=== PATIENT | male | born 1965 | race African-American/Black ===

== ENCOUNTER 2016-07-15 19:30 | Inpatient (IN) | payer MEDICARE, MEDICAID ==
[~2016-07-15] VITALS: Ht 193 cm; Wt 174.3 kg
[2016-07-15 20:19] LABS: BASOPHILS # (AUTO) 0.2 /CMM (0.0-0.2); BASOPHILS % (AUTO) 1.3 % (0.0-2.0); DIFF TOTAL % 100 %; EOSINOPHILS # (AUTO) 0.2 /CMM (0.0-0.7); EOSINOPHILS % (AUTO) 1.1 % (0.0-6.0); HEMATOCRIT 33 % (39-51); HEMOGLOBIN 10.4 g/dL (13.5-17.5); LYMPHOCYTES # (AUTO) 1.7 /CMM (0.8-4.8); LYMPHOCYTES % (AUTO) 11.4 % (20.0-44.0); MEAN CORPUSCULAR HEMOGLOBIN 25 PG (26.0-33.0); MEAN CORPUSCULAR HGB CONC 32 g/dl (31.0-36.0); MEAN CORPUSCULAR VOLUME 80 fL (80-96); MONOCYTES # (AUTO) 1.5 /CMM (0.1-1.30); MONOCYTES % (AUTO) 9.9 % (2.0-12.0); NEUTROPHILS # (AUTO) 11.7 /CMM (1.8-8.9); NEUTROPHILS % (AUTO) 76.3 % (43.0-81.0); PLATELET COUNT (AUTO) 471 /CMM (150-450); WHITE BLOOD COUNT (AUTO) 15.3 K/uL (4.3-11.0)
[2016-07-15 20:30] LABS: ANION GAP 10 (5-14); CALCIUM, SERUM 8.5 mg/dL (8.5-10.1); CARBON DIOXIDE 31 mmol/L (21-32); CHLORIDE 101 mmol/L (98-107); CREATININE 1.3 mg/dL (0.6-1.3); GFR 70 mL/min (>60); GLUCOSE 157 mg/dL (74-106); POTASSIUM 4.5 mmol/L (3.5-5.1); SODIUM SERUM 137 mmol/L (136-145); UREA NITROGEN, BLOOD 20 mg/dL (7-18)
[2016-07-15 20:32] LABS: INR 1.28 (0.87-1.13); PROTHROMBIN TIME 13.4 SECS (9.5-12.7)
[2016-07-15 20:38] LABS: TROPONIN I < 0.017 ng/mL (0.00-0.056)
[2016-07-15] MEDS ORDERED: LEVOFLOXACIN 750 MG /D5W 150ML 150 ML IV ONE ×2 (21:30→21:31)
[2016-07-15] MEDS ORDERED: IV SET PRIMARY PUMP SET 1 EA INFUS.SET MC ONE (21:31)
[2016-07-15 22:00] VITALS: BP 103/69
[2016-07-15] MEDS ORDERED: IV NS 0.9% 1,000 ML BAG IV ONE (22:00)
[2016-07-15] MEDS ORDERED: IV NS 0.9% 1,000 ML ONE (22:01)
[2016-07-15] MEDS ORDERED: IV SET PRIMARY 1 EA INFUS.SET MC ONE (22:01)
[2016-07-15 22:45] VITALS: BP 105/63
[2016-07-15 23:06] LABS: *LACTIC ACID REFLEX FLAG YES
[2016-07-15 23:38] LABS: BILIRUBIN,DIRECT 0.2 mg/dL (0.0-0.2); BILIRUBIN,TOTAL 0.3 mg/dL (0.2-1.0)
[2016-07-15] MEDS ORDERED: IV NS 0.9% 1,000 ML IV PRN (23:45)
[2016-07-16] MEDS ORDERED: ACETAMINOPHEN 325 MG TABLET PO PRN
[2016-07-16] MEDS ORDERED: ZOLPIDEM TARTRATE 5 MG TABLET PO PRN
[2016-07-16] MEDS ORDERED: MAG HYDROX/AL HYDROX/SIMETH 30 ML UDC PO PRN
[2016-07-16] MEDS ORDERED: Z GUARD REMEDY 2 OZ OINT TP PRN
[2016-07-16] MEDS ORDERED: ONDANSETRON HCL/PF 4 MG/2 ML VIAL IVP PRN
[2016-07-16] MEDS ORDERED: MAGNESIUM HYDROXIDE 30 ML UDC PO PRN
[2016-07-16] MEDS ORDERED: SECONDARY IV SET 1 EA INFUS.SET MC ONE (00:19)
[2016-07-16] MEDS ORDERED: IV SET PRIMARY PUMP SET 1 EA INFUS.SET MC ONE (00:19)
[2016-07-16] MEDS ORDERED: PIPERACILLIN /TAZOBACTAM 2.25 G VIAL IV ONE (00:25)
[2016-07-16] MEDS ORDERED: IV D5W 50 ML IV ONE (00:25)
[2016-07-16] MEDS ORDERED: GUAIFENESIN/D-METHORPHAN HB 5 ML UDC ONE (05:57)
[2016-07-16] MEDS: GUAIFENESIN/D-METHORPHAN HB 5 ML UDC PO PRN ×2 (06:01→22:55)
[2016-07-16 07:01] LABS: CALCIUM, SERUM 8.5 mg/dL (8.5-10.1); CREATININE 1.1 mg/dL (0.6-1.3); PHOSPHORUS 3.8 mg/dL (2.5-4.9); POTASSIUM 4.5 mmol/L (3.5-5.1)
[2016-07-16 07:02] LABS: DIFF TOTAL % 100 %; EOSINOPHILS # (AUTO) 0.1 /CMM (0.0-0.7); EOSINOPHILS % (AUTO) 0.7 % (0.0-6.0); HEMATOCRIT 31 % (39-51); HEMOGLOBIN 9.8 g/dL (13.5-17.5); LYMPHOCYTES # (AUTO) 1.7 /CMM (0.8-4.8); MEAN CORPUSCULAR HEMOGLOBIN 26 PG (26.0-33.0); MEAN CORPUSCULAR HGB CONC 32 g/dl (31.0-36.0); MEAN CORPUSCULAR VOLUME 80 fL (80-96); MONOCYTES # (AUTO) 1.5 /CMM (0.1-1.30); MONOCYTES % (AUTO) 9.4 % (2.0-12.0); NEUTROPHILS # (AUTO) 12.2 /CMM (1.8-8.9); NEUTROPHILS % (AUTO) 78.9 % (43.0-81.0); PLATELET COUNT (AUTO) 492 /CMM (150-450); RED BLOOD CELL COUNT(AUTO) 3.83 MIL/uL (4.5-6.0); WHITE BLOOD COUNT (AUTO) 15.4 K/uL (4.3-11.0)
[2016-07-16 07:21] LABS: THYROID STIMULATING HORMONE 1.36 uIU/mL (0.358-3.74)
[2016-07-16] MEDS ORDERED: PIPERACILLIN /TAZOBACTAM 3.375 G in IV D5W 50 ML IV SCH (07:30)
[2016-07-16 08:00] VITALS: BP_SYST 103; BP_DIAS 69; BP_DIAS 70
[2016-07-16] MEDS: PANTOPRAZOLE 40 MG TABLET.DR PO SCH (08:06)
[2016-07-16] MEDS ORDERED: PIPERACILLIN /TAZOBACTAM 4.5 G in IV D5W 50 ML IV SCH ×3 (08:30)
[2016-07-16] MEDS ORDERED: FUROSEMIDE 20 MG/2 ML VIAL IV SCH (11:00)
[2016-07-16] MEDS: PIPERACILLIN /TAZOBACTAM 4.5 G in IV D5W 50 ML IV SCH ×3 (12:31→23:57)
[2016-07-16] MEDS: CARVEDILOL 6.25 MG TABLET PO SCH ×2 (12:37→21:12)
[2016-07-16] MEDS ORDERED: HYDROGEL DRESSING 90 GM TUBE TP PRN (14:00)
[2016-07-16] MEDS: HYDROCODONE/APAP 5/325MG 1 EACH TABLET PO PRN ×2 (14:20→21:28)
[2016-07-16] MEDS ORDERED: MINERAL OIL/PETROLATUM,WHITE 120 GM JAR TP PRN (14:30)
[2016-07-16 16:00] VITALS: BP 110/81
[2016-07-16] MEDS: HYDROGEL DRESSING 90 GM TUBE TP SCH (17:15)
[2016-07-16 20:00] VITALS: BP 122/87
[2016-07-17] MEDS: PIPERACILLIN /TAZOBACTAM 4.5 G in IV D5W 50 ML IV SCH ×3 (06:11→18:02)
[2016-07-17 07:52] VITALS: BP 109/76
[2016-07-17] MEDS: PANTOPRAZOLE 40 MG TABLET.DR PO SCH (08:26)
[2016-07-17] MEDS: CARVEDILOL 6.25 MG TABLET PO SCH ×2 (08:27→21:13)
[2016-07-17] MEDS: HYDROGEL DRESSING 90 GM TUBE TP SCH (08:35)
[2016-07-17] MEDS ORDERED: LEVE250T2 PO (08:50)
[2016-07-17] MEDS ORDERED: RIVA10TA PO (08:50)
[2016-07-17] MEDS ORDERED: OXYC-34 PO (08:50)
[2016-07-17] MEDS ORDERED: ATOR10TA PO (08:50)
[2016-07-17] MEDS ORDERED: FURO40TA5 PO (08:50)
[2016-07-17] MEDS ORDERED: BLOO-668 IN (08:50)
[2016-07-17] MEDS ORDERED: AMIN30LI4 PO (08:50)
[2016-07-17] MEDS ORDERED: DILT240C2 PO (08:50)
[2016-07-17] MEDS ORDERED: ARIP5TAB4 PO (08:50)
[2016-07-17] MEDS ORDERED: ASPI81TA2 PO (08:50)
[2016-07-17] MEDS ORDERED: DOCU-270 PO (08:50)
[2016-07-17] MEDS ORDERED: TRAM50TA2 PO (08:50)
[2016-07-17] MEDS ORDERED: ASCO500T9 PO (08:50)
[2016-07-17] MEDS ORDERED: BISA10SU8 RC (08:50)
[2016-07-17] MEDS ORDERED: MAGN400O6 PO (08:50)
[2016-07-17] MEDS ORDERED: BENA40TA2 PO (08:50)
[2016-07-17] MEDS ORDERED: GABA-534 PO (08:50)
[2016-07-17] MEDS ORDERED: INSU100V11 SQ (08:50)
[2016-07-17] MEDS ORDERED: RANI150T8 PO (08:50)
[2016-07-17] MEDS ORDERED: VENL25TA4 PO (08:50)
[2016-07-17] MEDS ORDERED: ACET-868 PO (08:50)
[2016-07-17] MEDS ORDERED: CLON0.1T PO (08:50)
[2016-07-17] MEDS ORDERED: TIZA2CAP PO (08:50)
[2016-07-17] MEDS ORDERED: DIVA250T4 PO (08:50)
[2016-07-17] MEDS ORDERED: BISACODYL SUPP (10 MG) 10 MG/SUPP.RECT SUPP.RECT RC PRN (09:00)
[2016-07-17] MEDS ORDERED: ACETAMINOPHEN 325 MG TABLET PO PRN (09:00)
[2016-07-17] MEDS ORDERED: HYDROCODONE/APAP 10/325MG 1 EA TABLET PO PRN (09:00)
[2016-07-17] MEDS ORDERED: CLONIDINE HCL 0.1 MG TABLET PO PRN (09:00)
[2016-07-17] MEDS ORDERED: MAGNESIUM HYDROXIDE 30 ML UDC PO PRN (09:00)
[2016-07-17] MEDS ORDERED: DILTIAZEM HCL CD 240 MG PO SCH (09:00)
[2016-07-17] MEDS ORDERED: DEXTROSE 50%-WATER 50 ML DISP.SYRIN IV PRN (09:30)
[2016-07-17] MEDS: DOCUSATE SODIUM 100 MG CAPSULE PO SCH ×2 (09:43→16:50)
[2016-07-17] MEDS: ARIPIPRAZOLE 5 MG TABLET PO SCH (09:43)
[2016-07-17] MEDS: ASPIRIN 81 MG TAB.CHEW PO SCH (09:44)
[2016-07-17] MEDS: PROSOURCE / PROSTAT (PYXIS) 30 ML UDC PO SCH ×2 (10:51→16:50)
[2016-07-17] MEDS: VENLAFAXINE 37.5 MG TABLET PO SCH ×2 (10:51→17:24)
[2016-07-17] MEDS: LEVETIRACETAM (250 MG) 250 MG TABLET PO SCH ×2 (10:51→21:15)
[2016-07-17] MEDS: BENAZEPRIL HCL 20 MG TABLET PO SCH (10:52)
[2016-07-17] MEDS: ASCORBIC ACID 500 MG TABLET PO SCH (10:52)
[2016-07-17] MEDS: FUROSEMIDE 40 MG TABLET PO SCH (10:58)
[2016-07-17] MEDS: TIZANIDINE HCL 4 MG TABLET PO SCH ×2 (11:58→17:24)
[2016-07-17] MEDS: DIVALPROEX SODIUM 250 MG TABLET.DR PO SCH ×2 (12:25→21:14)
[2016-07-17] MEDS: GABAPENTIN 300 MG CAPSULE PO SCH ×2 (12:25→21:13)
[2016-07-17] MEDS: INSULIN REGULAR, HUMAN 100 UNIT/ML 3 ML VIAL SQ PRN (12:28)
[2016-07-17] MEDS: BLOOD SUGAR DIAGNOSTIC 1 EACH STRIP IN SCH ×3 (13:02→21:14)
[2016-07-17] MEDS: GUAIFENESIN/D-METHORPHAN HB 5 ML UDC PO PRN ×2 (15:41→19:55)
[2016-07-17 16:00] VITALS: BP 90/63
[2016-07-17] MEDS: RIVAROXABAN 10 MG TABLET PO SCH (16:51)
[2016-07-17] MEDS ORDERED: RIVAROXABAN 10 MG TABLET PO SCH (17:00)
[2016-07-17 20:00] VITALS: BP 121/86
[2016-07-17] MEDS ORDERED: ATORVASTATIN 10 MG TABLET PO SCH (22:00)
[2016-07-18] MEDS: PIPERACILLIN /TAZOBACTAM 4.5 G in IV D5W 50 ML IV SCH ×4 (00:04→17:46)
[2016-07-18] MEDS: TIZANIDINE HCL 4 MG TABLET PO SCH ×5 (00:06→17:46)
[2016-07-18] MEDS: GABAPENTIN 300 MG CAPSULE PO SCH ×2 (04:44→12:33)
[2016-07-18] MEDS: DIVALPROEX SODIUM 250 MG TABLET.DR PO SCH ×2 (04:44→12:32)
[2016-07-18 06:31] LABS: DIFF TOTAL % 100 %; EOSINOPHILS # (AUTO) 0.2 /CMM (0.0-0.7); HEMATOCRIT 30 % (39-51); HEMOGLOBIN 9.4 g/dL (13.5-17.5); LYMPHOCYTES # (AUTO) 1.8 /CMM (0.8-4.8); MEAN CORPUSCULAR HEMOGLOBIN 25 PG (26.0-33.0); MEAN CORPUSCULAR HGB CONC 31 g/dl (31.0-36.0); MEAN CORPUSCULAR VOLUME 81 fL (80-96); MONOCYTES # (AUTO) 1.7 /CMM (0.1-1.30); MONOCYTES % (AUTO) 10.4 % (2.0-12.0); NEUTROPHILS # (AUTO) 12.9 /CMM (1.8-8.9); NEUTROPHILS % (AUTO) 77.6 % (43.0-81.0); PLATELET COUNT (AUTO) 433 /CMM (150-450); RED BLOOD CELL COUNT(AUTO) 3.75 MIL/uL (4.5-6.0); WHITE BLOOD COUNT (AUTO) 16.6 K/uL (4.3-11.0)
[2016-07-18] MEDS: PANTOPRAZOLE 40 MG TABLET.DR PO SCH ×2 (06:32→08:39)
[2016-07-18] MEDS: BLOOD SUGAR DIAGNOSTIC 1 EACH STRIP IN SCH ×3 (06:36→17:56)
[2016-07-18] MEDS: INSULIN REGULAR, HUMAN 100 UNIT/ML 3 ML VIAL SQ PRN (06:36)
[2016-07-18 06:37] LABS: CALCIUM, SERUM 8.3 mg/dL (8.5-10.1); CREATININE 1.2 mg/dL (0.6-1.3); POTASSIUM 4.3 mmol/L (3.5-5.1)
[2016-07-18 08:00] VITALS: BP 103/66
[2016-07-18] MEDS: PROSOURCE / PROSTAT (PYXIS) 30 ML UDC PO SCH ×2 (08:37→16:33)
[2016-07-18] MEDS: ASPIRIN 81 MG TAB.CHEW PO SCH (08:38)
[2016-07-18] MEDS: BENAZEPRIL HCL 20 MG TABLET PO SCH (08:38)
[2016-07-18] MEDS: VENLAFAXINE 37.5 MG TABLET PO SCH (08:39)
[2016-07-18] MEDS: DOCUSATE SODIUM 100 MG CAPSULE PO SCH ×2 (08:39→16:32)
[2016-07-18] MEDS: FUROSEMIDE 40 MG TABLET PO SCH (08:39)
[2016-07-18] MEDS: ASCORBIC ACID 500 MG TABLET PO SCH (08:39)
[2016-07-18] MEDS: ARIPIPRAZOLE 5 MG TABLET PO SCH (08:39)
[2016-07-18] MEDS: CARVEDILOL 6.25 MG TABLET PO SCH (08:40)
[2016-07-18] MEDS: HYDROGEL DRESSING 90 GM TUBE TP SCH (08:41)
[2016-07-18] MEDS: LEVETIRACETAM (250 MG) 250 MG TABLET PO SCH (08:43)
[2016-07-18] MEDS ORDERED: SECONDARY IV SET 1 EA INFUS.SET MC ONE (12:42)
[2016-07-18 16:00] VITALS: BP 102/65
[2016-07-18] MEDS: RIVAROXABAN 10 MG TABLET PO SCH (16:34)
[2016-07-18] MEDS ORDERED: VENLAFAXINE 37.5 MG TABLET PO SCH (17:56)
== END 2016-07-18 20:50 | DRG 177 ==
LOC: ER 19:32 → MED 22:05
DX: J15.6 Pneumonia due to other Gram-negative bacteria (principal); I50.33 Acute on chronic diastolic (congestive) heart failure; E43 Unspecified severe protein-calorie malnutrition; D68.59 Other primary thrombophilia; I69.354 Hemiplegia and hemiparesis following cerebral infarction affecting left non-dominant side; I50.1 Left ventricular failure, unspecified; Z68.42 Body mass index [BMI] 45.0-49.9, adult; E87.2 Acidosis; K44.9 Diaphragmatic hernia without obstruction or gangrene; J15.9 Unspecified bacterial pneumonia; G40.909 Epilepsy, unspecified, not intractable, without status epilepticus; I48.91 Unspecified atrial fibrillation; K21.9 Gastro-esophageal reflux disease without esophagitis; M17.9 Osteoarthritis of knee, unspecified; K43.9 Ventral hernia without obstruction or gangrene; E11.621 Type 2 diabetes mellitus with foot ulcer; E66.01 Morbid (severe) obesity due to excess calories; E78.5 Hyperlipidemia, unspecified; I48.2 Chronic atrial fibrillation; I87.2 Venous insufficiency (chronic) (peripheral); D64.9 Anemia, unspecified; I87.8 Other specified disorders of veins; F31.9 Bipolar disorder, unspecified; Z99.3 Dependence on wheelchair; E11.65 Type 2 diabetes mellitus with hyperglycemia; I11.0 Hypertensive heart disease with heart failure; D72.829 Elevated white blood cell count, unspecified; L97.529 Non-pressure chronic ulcer of other part of left foot with unspecified severity
CPT/HCPCS: 36415; 71010-TC; 80048-TC; 80061-TC; 82247-TC; 82248-TC; 82962-TC; 83605-TC; 83735-TC; 84100-TC; 84443-TC; 84484-TC; 85025-TC; 85730-TC; 87040-TC; 87070-TC; 93307-TC; 97001-TC; 97110-TC; 97112-TC; 97530-TC; A4606; A6248; A6402; A6403; J1815; J1956; J2543; J7030; J7060; Z7610